=== PATIENT | female | born 1975 | race American Indian/Alaskan Native ===

== ENCOUNTER 2017-06-01 19:31 | Emergency (ER) | payer OTHER, MEDICAID ==
[2017-06-02] MEDS ORDERED: MOTRIN PO ONE (05:00)
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
[2017-06-02 06:40] VITALS: BP 139/89
== END 2017-06-02 07:35 | disposition home or self-care (01) ==
LOC: ED 19:31
DX: S39.012A Strain of muscle, fascia and tendon of lower back, initial encounter (principal); Z91.040 Latex allergy status; Z88.0 Allergy status to penicillin; Z91.013 Allergy to seafood; V89.2XXA Person injured in unspecified motor-vehicle accident, traffic, initial encounter; Y93.89 Activity, other specified; Y92.89 Other specified places as the place of occurrence of the external cause; Y99.8 Other external cause status
CPT/HCPCS: 99282